=== PATIENT | female | born 1955 | race Two or more races ===

== ENCOUNTER 2017-05-23 12:04 | Emergency (ER) | payer OTHER ==
[2017-05-23 12:16] VITALS: BP 132/63; PULSE 92; TEMP 98.7; BMI 32.2
[2017-05-23] MEDS ORDERED: KETOROLAC TROMETHAMINE 60 MG/2 ML VIAL IM ONE (12:38)
--- NOTE | 2017-05-23 12:38 | PDOC ---
History of Present Illness - General Chief Complaint: Back Pain Stated Complaint: BACK PAIN Time Seen by Provider: 05/23/17 12:29 History Source: Patient Exam Limitations: No Limitations - History of Present Illness Initial Comments: 05/23/17 12:41 61 yr female with c/o low back pain to right buttock radiates to the leg for one week. Pt has had this in the past history of back pain. Pt has HTN, high cholesterol. denies abd pain neg fever or chills, states she is urinating more constantly. Severity: reports: moderate Pain Location: reports: back Method of Injury: Yes: unknown, other (injury 14 years ago ) Past History - Past Medical History Allergies/Adverse Reactions: Allergies Allergy/AdvReac Type Severity Reaction Status Date / Time Penicillins Allergy Swelling Verified 05/23/17 12:16 Home Medications: Ambulatory Orders Cyclobenzaprine HCl [Flexeril -] 10 mg PO TID PRN #21 tablet 05/23/17 Naproxen [Naprosyn -] 500 mg PO BID PRN #14 tablet 05/23/17 CVA: No COPD: No HTN: Yes Hypercholesterolemia: Yes - Suicide/Smoking/Psychosocial Hx Smoking History: Never smoked Hx Alcohol Use: No Drug/Substance Use Hx: No Substance Use Type: None Trauma Specific PMHX - Complaint Specific PMHX Arthritis: No Back Injury: Yes Hx Sacro Iliac Joint Dysfunction: No Review of Systems - Review of Systems Able to Perform ROS?: Yes Is the patient limited Setswana proficient: No Constitutional: No: Symptoms Reported HEENTM: No: Symptoms Reported Respiratory: No: Symptoms reported Cardiac (ROS): No: Symptoms Reported ABD/GI: No: Symptoms Reported : No: Symptoms Reported Musculoskeletal: Yes: See HPI, Back Pain Integumentary: No: Symptoms Reported *Physical Exam - Vital Signs Last Vital Signs Temp Pulse Resp BP Pulse Ox 98.7 F 92 H 20 132/63 99 05/23/17 12:13 05/23/17 12:13 05/23/17 12:13 05/23/17 12:13 05/23/17 12:13 - Physical Exam General Appearance: Yes: Nourished, Appropriately Dressed HEENT: positive: Normal ENT Inspection Neck: positive: Supple. negative: Lymphadenopathy (R), Lymphadenopathy (L) Respiratory/Chest: positive: Lungs Clear, Normal Breath Sounds Cardiovascular: positive: Regular Rhythm, Regular Rate Medical Decision Making - Medical Decision Making 05/23/17 15:08 cc: low back pain to the right buttock and thigh pt with urinary frequency denies burning no fever or chills ambulatory will check UA, toradol for pain Ua with blood will get ct stone pt feels better with the toradol injection ct pending xray has resulted 05/23/17 19:18 ct results discussed and a copy has been given to the pt. pt will follow with doctor tomorrow. *DC/Admit/Observation/Transfer Diagnosis at time of Disposition: Low back pain Qualifiers: Chronicity: acute Back pain laterality: right Sciatica presence: with sciatica Sciatica laterality: sciatica of right side Qualified Code(s): M54.41 - Lumbago with sciatica, right side - Discharge Dispostion Disposition: HOME Condition at time of disposition: Good - Prescriptions Prescriptions: Cyclobenzaprine HCl [Flexeril -] 10 mg PO TID PRN #21 tablet PRN Reason: Muscle Spasms Naproxen [Naprosyn -] 500 mg PO BID PRN #14 tablet PRN Reason: Back Pain - Referrals Referrals: Doug Lyons MD [Staff Physician] - - Patient Instructions Additional Instructions: follow with the orthopedist for follow up take the medciations as prescribed for pain and muscle spasm apply heat to low back every 4hrs for 30 minutes please follow with your doctor tomorrow for a follow up ER visit also follow with the orthopedist - Post Discharge Activity
[2017-05-23] MEDS ORDERED: KETOROLAC TROMETHAMINE 60 MG/2 ML VIAL ONE (12:43)
[2017-05-23 13:01] LABS: URINE APPEARANCE CLEAR; URINE BILIRUBIN NEGATIVE (NEGATIVE); URINE BLOOD 1+ (NEGATIVE); URINE COLOR STRAW; URINE GLUCOSE (UA) NEGATIVE (NEGATIVE); URINE KETONE NEGATIVE (NEGATIVE); URINE LEUK ESTERASE NEGATIVE (NEGATIVE); URINE NITRITE NEGATIVE (NEGATIVE); URINE PROTEIN NEGATIVE (NEGATIVE); URINE UROBILINOGEN NEGATIVE mg/dL (0.2-1.0)
[2017-05-23 13:07] LABS: URINE RBC 1 /hpf (0-3); URINE WBC 1 /hpf (3-5)
[2017-05-23 19:13] LABS: URINE LEUK ESTERASE Negative (NEGATIVE)
== END 2017-05-23 15:50 | disposition home or self-care (01) ==
LOC: JERFT 12:04
PROC: 3E0233Z Introduction of Anti-inflammatory into Muscle, Percutaneous Approach (ICD-10-PCS; principal; 2017-05-23)
DX: M54.41 Lumbago with sciatica, right side (principal); I10 Essential (primary) hypertension; E78.00 Pure hypercholesterolemia, unspecified
CPT/HCPCS: 72100-TC; 74176; 81003; 81015; 96372; 99281-25